=== PATIENT | male | born 1985 ===

== ENCOUNTER 2019-01-18 00:15 | Day surgery (SDC) | payer BC ==
[~2019-01-18] VITALS: Ht 175.3 cm; Wt 90.7 kg
[2019-01-18] MEDS ORDERED: ROPIVACAINE 0.2% 20 ML VIAL ONE (13:55)
[2019-01-18 13:56] VITALS: BP 128/76
[2019-01-18] MEDS ORDERED: FAMOTIDINE 20 MG TAB PO ONE (14:10)
[2019-01-18] MEDS ORDERED: ceFAZolin(*) 2GM/D5W 50ML 50 ML IVPB ONE (14:10)
[2019-01-18] MEDS ORDERED: CELECOXIB 200 MG CAP PO ONE (14:10)
[2019-01-18] MEDS ORDERED: MIDAZOLAM 2 MG/2 ML VIAL IVP PRN (14:10)
[2019-01-18] MEDS ORDERED: LIDOCAINE/SOD BICARB 8.4% SYR ID ONE (14:10)
[2019-01-18] MEDS ORDERED: NORMOSOL R SOLN(*) 1000 ML BAG 1,000 ML IV PRN (14:10)
[2019-01-18] MEDS ORDERED: DEXAMETHASONE SOD PHOS 10MG/ML ONE (15:26)
[2019-01-18] MEDS ORDERED: ONDANSETRON 4 MG/2 ML VIAL ONE ×2 (15:26→18:24)
[2019-01-18] MEDS ORDERED: fentaNYL CITR 100 MCG/2 ML AMP ONE ×3 (15:26→17:58)
[2019-01-18] MEDS ORDERED: ROCURONIUM BR 10 MG/ML 5 ML SY 5 ML ONE (17:10)
[2019-01-18] MEDS ORDERED: PROPOFOL EMUL(*) 10MG/ML 20 ML 20 ML ONE (17:10)
[2019-01-18] MEDS ORDERED: HYDROmorphone HCL 2 MG/ML SDV ONE (18:04)
[2019-01-18] MEDS ORDERED: HYDR-653 PO (18:16)
[2019-01-18] MEDS ORDERED: APAP/HYDROCODONE 325/5 TAB ONE (18:40)
[2019-01-18 19:00] VITALS: BP 128/77
[2019-01-18 19:27] VITALS: BP 136/82
[2019-01-18 19:38] VITALS: BP 130/82
--- NOTE | 2019-01-18 19:57 | NUR ---
PT DISCHARGED FEELING NAUSEATED. STATES READY TO GO. PAIN HIGH BUT PT STATES IT IT TOLERABLE FOR POST OP KNOWING HE WILL HAVE PAIN. ENCOURAGED TO COUGH AND DEEP BREATH. STATES UNDERSTANDING.
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
--- NOTE | 2019-01-19 01:07 | RADIOLOGY IMAGING REPORT ---
[place] [facility] [place] Jimenez Smith : 1985 MR: [id number] V: [id number] EXAM DATE: ORDERING PHYSICIAN: NORMA HANSEN TECHNOLOGIST: Location: [facility] Patient: Jimenez Smith : 1985 Visit/Account:[id number] Date of Sevice: 01/18/2019 EXAMINATION: Intraoperative fluoroscopy with imaging of the left clavicle 01/18/2019 2:31 PM HISTORY: ORIF LEFT CLAVICLE COMPARISON: None available FLUOROSCOPY TIME: 5.6 seconds DOSE: DAP was 0.1385 Gy*cm2. FINDINGS: Fluoroscopy was provided. 6 images demonstrate plate and screw fixation of the left clavic le. IMPRESSION: Intraoperative fluoroscopy during left clavicle ORIF. Report Dictated By: Octavio Hayes MD at 01/19/2019 12:59 AM Report E-Signed By: Octavio Hayes MD at 01/19/2019 1:00 AM WSN:[id number]
== END 2019-01-18 18:52 | disposition home or self-care (01) ==
LOC: OR 00:15
PROVIDERS: ATTEND Orthopaedic Surgery
DX: S42.002A Fracture of unspecified part of left clavicle, initial encounter for closed fracture (principal); I10 Essential (primary) hypertension
CPT/HCPCS: 23515; 76000; C1713; J1100; J1170; J2250; J2405; J2704; J2795; J3010